=== PATIENT | male | born 1960 | race Caucasian/White ===

== ENCOUNTER 2018-07-27 09:02 | Emergency (ER) | payer MEDICARE, OTHER ==
[~2018-07-27] VITALS: Ht 185.4 cm; Wt 163.3 kg
[2018-07-27] MEDS ORDERED: ELIQUIS5 MG PO ×2 (09:19→11:05)
[2018-07-27] MEDS ORDERED: COZAAR100 MG PO (09:20)
[2018-07-27] MEDS ORDERED: ABSORBASE (09:21)
[2018-07-27] MEDS ORDERED: GABAPENTIN800 MG PO (09:21)
[2018-07-27] MEDS ORDERED: LASIX20 MG PO (11:05)
[2018-07-27] MEDS ORDERED: NORCO 5-325 TA1 EACH PO (11:05)
[2018-07-27] MEDS ORDERED: GLUCOPHAGE500 MG PO (11:05)
[2018-07-27] MEDS ORDERED: PREDNISONE20 MG PO (11:05)
== END 2018-07-27 11:28 | disposition home or self-care (01) ==
LOC: ED 09:02
DX: N48.1 Balanitis (principal); J02.9 Acute pharyngitis, unspecified; L30.9 Dermatitis, unspecified; E11.9 Type 2 diabetes mellitus without complications; Z76.0 Encounter for issue of repeat prescription; I25.2 Old myocardial infarction; I10 Essential (primary) hypertension; F17.200 Nicotine dependence, unspecified, uncomplicated; Z91.018 Allergy to other foods; Z91.010 Allergy to peanuts; Z79.899 Other long term (current) drug therapy
CPT/HCPCS: 87081; 87880; 99283